=== PATIENT | female | born 1950 | race Caucasian/White ===

== ENCOUNTER 2019-03-14 22:49 | Inpatient (IN) | payer OTHER ==
[~2019-03-14] VITALS: Ht 162.6 cm; Wt 98.2 kg
[~2019-03-14 22:49] MED LIST: ASPIRIN325 PO; ATORVASTATIN CA40 MG PO; CARAFATE 1 GM TA1 G1 PO; CLOPIDOGREL75 MG PO; COREG6.25 MG PO; COZAAR 50 MG TA50 M2 PO; EFFEXOR 5050 MG/1 T1 PO; GABAPENTIN 100100 MG PO; GAS RELIEF80 MG PO; LOPERAMIDE 2 MG2 M1 PO; MIRALAX17 GM PO; MS CONTIN15 MG PO; ONDANSETRON HCL4 M2 PO; OXYCONTIN10 M1 PO; PROTONIX40 M1 PO; SEROQUEL 50 MG50 MG PO; TRAZODONE HCL50 MG PO; XANAX 0.5 MG0.5 M1 PO
[2019-03-14 22:57] VITALS: BP 125/48
[2019-03-14] MEDS ORDERED: ZETIA10 MG PO (23:10)
[2019-03-14] MEDS ORDERED: MI-ACID80 MG PO (23:11)
[2019-03-14] MEDS ORDERED: BENICAR40 MG PO (23:11)
[2019-03-14] MEDS ORDERED: NITROSTAT0.4 M1 SUBLING (23:12)
[2019-03-14] MEDS ORDERED: VOLTAREN GEL 1100 G1 TOP (23:12)
[2019-03-14] MEDS ORDERED: VENTOLIN HFA 1818 GM INH (23:12)
[2019-03-14] MEDS ORDERED: XOLEGEL45 GM TOP (23:13)
[2019-03-14] MEDS ORDERED: SALONPAS DEEP R78 GM TOP (23:14)
[2019-03-14] MEDS ORDERED: TRAZODONE HCL50 MG PO (23:14)
[2019-03-14] MEDS ORDERED: ZOLOFT 50 MG TA50 M1 PO (23:14)
[2019-03-14] MEDS ORDERED: VENLAFAXINE HC150 M1 PO (23:15)
[2019-03-14] MEDS ORDERED: PREPARATION H O28 GM RECTAL (23:16)
[2019-03-14] MEDS ORDERED: ACETAMINOPHEN500 M1 PO (23:16)
[2019-03-14] MEDS ORDERED: NYAMYC15 GM TOP (23:16)
[2019-03-14] MEDS ORDERED: LOPERAMIDE 2 MG2 M1 PO (23:16)
[2019-03-15 00:20] LABS: ABSOLUTE NEUTROPHILS 9.2 thou/uL (1.4-8.2); BASOPHILS 0.6 % (0.0-2.0); EOSINOPHILS 3.1 % (0.0-3.0); HEMATOCRIT 41.9 % (37.0-47.0); HEMOGLOBIN 13.7 gm/dL (12.0-15.0); LYMPHOCYTES 18.7 % (24.0-44.0); MCHC 32.8 g/dL (28.0-37.0); MCV 97.8 fL (80.0-100.0); MONOCYTES 7.3 % (1.0-8.0); PLATELET COUNT 317 thou/uL (150-400); POLYS 70.3 % (36.0-66.0); RBC 4.29 mil/uL (4.20-5.00); RDW 13.4 % (10.5-14.5)
[2019-03-15 00:35] LABS: ANION GAP 6 mmol/L (7-16); BUN 11 mg/dL (7-18); CALCIUM 8.8 mg/dL (8.5-10.1); CHLORIDE 101 mmol/L (98-107); CO2 29 mmol/L (21-32); CREATININE 0.8 mg/dL (0.6-1.0); GLUCOSE 130 mg/dL (74-106); POTASSIUM 4.9 mmol/L (3.5-5.1); SODIUM 136 mmol/L (136-145); TROPONIN-I <0.06 ng/mL (<0.06)
[2019-03-15 01:51] LABS: URINE BILIRUBIN NEGATIVE (Negative); URINE BLOOD NEGATIVE (Negative); URINE CLARITY CLEAR; URINE COLOR YELLOW; URINE GLUCOSE-RANDOM* NEGATIVE (Negative); URINE KETONES NEGATIVE (Negative); URINE LEUKOCYTES-REFLEX TRACE (Negative); URINE NITRITE-REFLEX NEGATIVE (Negative); URINE PROTEIN (DIPSTICK) NEGATIVE (Negative); URINE UROBILINOGEN 0.2 E.U./dl (0.2-1.0)
--- NOTE | 2019-03-15 04:06 | NUR ---
PATIENT REPOSITIONED. CLEANED OF INCONTINENT URINE. REPOSITIONED WITH PILLOW TO TAKE PRESSURE OFF RIGHT HIP. CLEAN GOWN AND WARM BLANKETS PLACED ON PATIENT. STATES SHE IS HAVING UNBELIEVABLE RIGHT HIP PAIN AND JUST DOESN'T UNDERSTAND WHY. ALSO, PUREWICK PLACED TO SUCTION.
[2019-03-15 05:17] VITALS: BP 104/57
[2019-03-15 05:30] VITALS: BP 104/57
[2019-03-15 05:51] VITALS: BP 152/65
[2019-03-15 07:00] VITALS: BP 133/72
--- NOTE | 2019-03-15 07:12 | NUR ---
PT ARRIVED FROM ER AT 0555HRS. PT IS AOX4 BUT DROWSY. ORDERS STARTED. PT REQUESTED PAIN MEDS AND PRN TYLENOL WAS GIVEN. PT WENT BACK TO SLEEP. AM RN TO COMPLETE ADMISSION.
--- NOTE | 2019-03-15 11:29 | NUR ---
Assumed pt care at 7am.Pt in bed very miserable and c/o rt hip pain.Assessment completed.vss.Dr Chong notified and order noted.Pain shot given with partial relief.Dr Chong said thenpt will be dc home today but it doesn't appear that pt is ready for dc.Case mgt notified,she said she will let dr know during the 1100 meeting.Will continue to monitor.
--- NOTE | 2019-03-15 13:13 | NUR ---
CM REVIEWED CHART AND SPOKE WITH CARE TEAM. CM MET WITH PT AT BEDSIDE THIS DAY. CM MET WITH PT AT BEDSIDE THIS DAY PT IS A&O X4. CM ROLE INTRODUCED. PT INDICATED SHE LIVES IN THE R[facility] AL FACILITY AT [facility]. 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 PT INDICATED NO DME OR HH HX. PT INDICATED SHE HOPES TO RETURN HOME ONCE MEDICALLY STABLE. PT WORKED WITH PT AND THEY INDICATED THAT PT WOULD BE SAFE TO RETURN TO HER RCF WITH HH SERVICES UPON DC. CM NOTIFIED PHYSICIAN. CM TRIED TO REACH PT'S SON BUT HE DIDN'T ANSWER. CM NOTIFIED LIAISON AT [facility] AND SHE INDICATED THAT THEY AREN'T ABLE TO PROVIDE TRANSPORT. CM TO HAVE REFERRAL SENT TO [facility]. CM TO ASK IF WE CAN ARRANGE [facility] TO TAKE PT HOME.
--- NOTE | 2019-03-15 13:49 | NUR ---
DISCHARGE PLANNING. PLAN IS FOR PATIENT TO DISCHARGE BACK TO [facility] [place] TODAY WITH HOME HEALTH SERVICES. PATIENT REFERRAL FAXED TO [facility], PER REQUEST. CALL PLACED TO LEYDI NELSON INTAKE LIAISON TO NOTIFY. AWAITING RESPONSE. FOLLOWING.
[2019-03-15 15:19] VITALS: BP 133/72
[2019-03-15 15:51] VITALS: BP 133/72
== END 2019-03-15 17:35 | disposition home health service (06) | DRG 555 ==
LOC: ER 22:49 → 4W 03-15 04:58 → EROBS 03-15 04:58 → 4W 03-15 05:31
PROVIDERS: Emergency Medicine; ADMIT Hospitalist
DX: M25.551 Pain in right hip (principal); G92 Toxic encephalopathy; K21.9 Gastro-esophageal reflux disease without esophagitis; F41.9 Anxiety disorder, unspecified; G90.9 Disorder of the autonomic nervous system, unspecified; I25.10 Atherosclerotic heart disease of native coronary artery without angina pectoris; F32.9 Major depressive disorder, single episode, unspecified; F17.200 Nicotine dependence, unspecified, uncomplicated; R73.03 Prediabetes; I10 Essential (primary) hypertension; E78.5 Hyperlipidemia, unspecified; W18.39XA Other fall on same level, initial encounter; E66.01 Morbid (severe) obesity due to excess calories; D72.829 Elevated white blood cell count, unspecified; Z90.89 Acquired absence of other organs; I25.2 Old myocardial infarction; Z90.49 Acquired absence of other specified parts of digestive tract; Z90.710 Acquired absence of both cervix and uterus; Z95.1 Presence of aortocoronary bypass graft; Y93.89 Activity, other specified; Z90.722 Acquired absence of ovaries, bilateral; Z79.82 Long term (current) use of aspirin; Z79.891 Long term (current) use of opiate analgesic; Z79.899 Other long term (current) drug therapy; Z88.5 Allergy status to narcotic agent; Z88.8 Allergy status to other drugs, medicaments and biological substances; Z91.041 Radiographic dye allergy status; Y92.89 Other specified places as the place of occurrence of the external cause; Z68.37 Body mass index [BMI] 37.0-37.9, adult; Y99.8 Other external cause status
CPT/HCPCS: 10040

== ENCOUNTER 2019-04-17 02:43 | Inpatient (IN) | payer OTHER ==
[2019-04-17] VITALS (7 sets, daily range): BP systolic 95–181; BP diastolic 33–72
[~2019-04-17] VITALS: Ht 165.1 cm; Wt 89.4 kg
[~2019-04-17 02:43] MED LIST changes: +ACETAMINOPHEN500 M1 PO; +BENICAR40 MG PO; +MI-ACID80 MG PO; +NITROSTAT0.4 M1 SUBLING; +NYAMYC15 GM TOP; +PREPARATION H O28 GM RECTAL; +SALONPAS DEEP R78 GM TOP; +VENLAFAXINE HC150 M1 PO; +VENTOLIN HFA 1818 GM INH; +VOLTAREN GEL 1100 G1 TOP; +XOLEGEL45 GM TOP; +ZETIA10 MG PO; +ZOLOFT 50 MG TA50 M1 PO
[2019-04-17 03:40] LABS: ABSOLUTE NEUTROPHILS 5.7 thou/uL (1.4-8.2); BASOPHILS 0.6 % (0.0-2.0); EOSINOPHILS 1.5 % (0.0-3.0); HEMATOCRIT 45.9 % (37.0-47.0); HEMOGLOBIN 15.3 gm/dL (12.0-15.0); LYMPHOCYTES 23.3 % (24.0-44.0); MCH 32.2 pg (26.0-34.0); MCHC 33.3 g/dL (28.0-37.0); MCV 96.7 fL (80.0-100.0); MONOCYTES 8.8 % (1.0-8.0); PLATELET COUNT 295 thou/uL (150-400); POLYS 65.8 % (36.0-66.0); RBC 4.75 mil/uL (4.20-5.00); RDW 13.4 % (10.5-14.5); WBC 8.7 thou/uL (4.0-11.0)
[2019-04-17 03:49] LABS: ANION GAP 11 mmol/L (7-16); BUN 36 mg/dL (7-18); CALCIUM 8.9 mg/dL (8.5-10.1); CHLORIDE 96 mmol/L (98-107); CO2 24 mmol/L (21-32); CREATININE 1.4 mg/dL (0.6-1.0); GLUCOSE 123 mg/dL (74-106); POTASSIUM 3.7 mmol/L (3.5-5.1); SODIUM 131 mmol/L (136-145)
[2019-04-17 03:58] LABS: LIPASE 52 U/L (73-393); MAGNESIUM 2.1 mg/dL (1.8-2.4); TROPONIN-I <0.06 ng/mL (<0.06)
[2019-04-17] MEDS ORDERED: VENTOLIN HFA INH8 GM INH (04:42)
--- NOTE | 2019-04-17 07:59 | NUR ---
PT ARRIVED ON UNIT FROM ER AT 0510. ADMITTED WITH N/V DIARRHEA AND A COUGH X3 DAYS. USING BEDPAN WITH SOME STRESS INCONTINENCE. OXY ORDERED FOR CHRONIC LEG PAIN. DENIES NAUSEA AT THIS TIME. RESTING COMFORTABLY. CALL LIGHT WITHIN REACH. FREQUENT OBSERVATION.
--- NOTE | 2019-04-17 11:22 | 2DMMODE ---
[facility] [place] [address] 2 D/M-MODE ECHOCARDIOGRAM Name: KELLY BRO Room #: 444-P ADM IN M.R.#: [id number] Admission: 04/17/19 Attend Phys: Terrance Howell MD Discharge: Date of : 46 Report #: [id number] THIS REPORT FOR: cc: Orlando Jensen MD, Shyam MD Mancuso, Gerald M. MD [facility] ~ APPROVED REPORT Study performed: 04/17/2019 10:16:11 EXAM: Comprehensive 2D, Doppler, and color-flow Echocardiogram Patient Location: Bedside Room #: 444 Status: routine BSA: 1.97 HR: 61 bpm BP: 143/69 mmHg Rhythm: NSR Other Information Study Quality: Adequate Indications COPD Dyspnea CAD Hypertension/HDD 2D Dimensions IVSd: 8.64 (7-11mm) LVOT Diam: 17.51 (18-24mm) LVDd: 41.14 mm PWd: 9.16 (7-11mm) Ascending Ao: 28.15 (22-36mm) LVDs: 29.18 (25-40mm) Aortic Root: 30.56 mm IVC: 18.00 mm Aortic Valve AoV Peak Melo.: 1.46 m/s AO Peak Gr.: 8.54 mmHg LVOT Max P.00 mmHg LVOT Max V: 1.00 m/s COURTNEY Vmax: 1.65 cm2 Mitral Valve E/A Ratio: 0.9 MV Decel. Time: 250.69 ms [facility] [address] [address] 2 D/M-MODE ECHOCARDIOGRAM Name: ADALIKELLY Room #: 444-P [facility] IN [facility]#: [id number] Admission: 04/17/19 Attend Phys: Inés Mitchell Discharge: Date of : 46 Report #: [id number] E Max Melo.: 0.96 m/s MV A Melo.: 1.02 m/s MV PHT: 72.70 ms IVRT: 143.02 ms Pulmonary Valve PV Peak Melo.: 1.11 m/s PV Peak Gr.: 4.99 mmHg Pulmonary Vein P Vein S: 0.58 m/s P Vein A: 0.22 m/s P Vein D: 0.40 m/s P Vein A Dur.: 87.7 msec P Vein S/D Ratio: 1.45 Tricuspid Valve TR Peak Melo.: 2.48 m/s TR Peak Gr.: 24.52 mmHg PA Pressure: 30.00 mmHg Left Ventricle The left ventricle is normal size. There is normal LV segmental wall motion. There is normal left ventricular wall thickness. The left ventricular systolic function is normal. The left ventricular ejection fraction is within the normal range. LVEF is 60-65%. Grade I - abnormal relaxation pattern. Right Ventricle The right ventricle is normal size. The right ventricular systolic function is normal. Atria The left atrium size is normal. The right atrium size is normal. Aortic Valve The aortic valve is normal in structure. No aortic regurgitation is present. There is no aortic valvular stenosis. Mitral Valve The mitral valve is normal in structure. There is no mitral valve regurgitation noted. No evidence of mitral valve stenosis. Tricuspid Valve The tricuspid valve is normal in structure. There is trace tricuspid regurgitation. Estimated PAP 30 mmHg. There is no pulmonary hypertension. [facility] [place] [address] 2 D/M-MODE ECHOCARDIOGRAM Name: KELLY BRO Room #: 444-P ADM IN M.R.#: [id number] Admission: 04/17/19 Attend Phys: Inés Mitchell Discharge: Date of : 46 Report #: [id number] Pulmonic Valve The pulmonary valve is normal in structure. Trace pulmonic regurgitation. Great Vessels The aortic root is normal in size. IVC is normal in size and collapses >50% with inspiration. Pericardium Small pericardial effusion. <Conclusion> The left ventricle is normal size. LVEF is 60-65%. Grade I - abnormal relaxation pattern. The right ventricle is normal size. The left atrium size is normal. The aortic valve is normal in structure. There is no mitral valve regurgitation noted. There is trace tricuspid regurgitation. Estimated PAP 30 mmHg. There is no pulmonary hypertension. The aortic root is normal in size. Small pericardial effusion. <ELECTRONICALLY SIGNED> By: Roman Diaz MD, FACC 04/17/19 112 [id number] Roman Diaz MD, FACC /INF
--- NOTE | 2019-04-17 12:01 | NUR ---
PT CARE ASSUMED 0700. A&Ox4. STOOL SAMPLE WAS TAKEN AND AWAITING RESULT FOR C-DIFF. CHIEF ACCOUNTING OFFICER, REHAB, CARDIOLOGY WAS CONSULTED. IV WAS PLACED WITH IV TEAM AND FLUIDS WERE STARTED. PT IS IN A LOT OF PAIN DUE TO HER NEUROPATHY AT BILATERAL LOWER EXTREMITY. LUNGS ARE WHEEZY AND PT IS ON 3L. PT REFUSED RT TREATMENT AND RT ASKED IF COPENEX COULD BE STARTED. DR. NORRIS HAS BEEN INFORMED. PT IS FROM [facility].
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
[2019-04-18 05:10] VITALS: BP 150/62
[2019-04-18 05:56] LABS: BASOPHILS 0.2 % (0.0-2.0); HEMATOCRIT 43.8 % (37.0-47.0); HEMOGLOBIN 14.5 gm/dL (12.0-15.0); LYMPHOCYTES 8.7 % (24.0-44.0); MCV 96.9 fL (80.0-100.0); MONOCYTES 7.1 % (1.0-8.0); PLATELET COUNT 315 thou/uL (150-400); RBC 4.52 mil/uL (4.20-5.00); RDW 13.4 % (10.5-14.5); WBC 8.3 thou/uL (4.0-11.0)
[2019-04-18 06:28] LABS: ALBUMIN 2.8 g/dL (3.4-5.0); CALCIUM 8.3 mg/dL (8.5-10.1); CREATININE 1.2 mg/dL (0.6-1.0); POTASSIUM 4.1 mmol/L (3.5-5.1); TOTAL BILIRUBIN 0.5 mg/dL (<0.1-1.0); TOTAL PROTEIN 8.1 g/dL (6.4-8.2)
[2019-04-18 07:53] VITALS: BP 155/64
--- NOTE | 2019-04-18 11:49 | NUR ---
PT CARE ASSUMED AT 0700. A&Ox4. PT HAS ANXIETY AND HAS NEEDED A DOSE OF XANAX THIS AM. PAIN IS UNCONTROLLED WITH PAIN MEDICATION. MD IS AWARE. IV IS PATENT, FLUIDS DISCONTINUED. ONE TIME DOSE OF LASIX ORDERED BY DR. NORRIS. PT HAS COMPLEETED HER BOWEL PREP AND HAS LEFT FOR THE COLONOSCOPY AT 1130. PT ON 3L. SKIN INTACT. FALL PROTOCOLL IN PLACE. SCD'S REFUSED DUE TO BILATERAL NEUROPATY. CALL LIGHT IN REACH. PT NEEDS LOTS OF EXTRA TIME WHEN IN THE ROOM.
[2019-04-18 12:36] VITALS: BP 152/76
--- NOTE | 2019-04-18 15:15 | NUR ---
PT ADMITTED RELATED TO N/V DIARRHEA COUGH. CM REVIEWED CHART AND SPOKE WITH CARE TEAM. CM MET WITH PT AT BEDSIDE THIS DAY. PT WAS IN PAIN CM KEPT ASSESSMENT BRIEF. PT INDICATED SHE LIVES AT [facility]. 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 PT INDICATED SHE PLANS TO RETURN THERE ONCE MEDCIALLY STABLE. CHART INDICATED PT HAD BEEN ON SERVICE WITH [facility] IN THE PAST. CM TO FOLLOW INDICATED WITH DC PLANNING.
--- NOTE | 2019-04-18 16:23 | NUR ---
I have reviewed and concur with student documentation.
[2019-04-18 19:30] VITALS: BP 148/50
--- NOTE | 2019-04-19 05:18 | NUR ---
ASSUMED CARE OF PT @1900 PT COMPLAINED OF UNCONTROLED PAIN IN ABD AND DOWN TO KNEES. PAIN MEDS GIVEN SEE EMAR. IV INTACT AND ABX GIVEN. EVENING MEDS AND ATIVAN GIVEN TO PT THIS SHIFT. PT RESTLESS AND VERY EMOTIONAL DUE TO PAIN. NURSE SAT AND COMMUNICATED WITH PT ABOUT PAIN, TX AND GETTING BETTER. ORDER FOR CT SCAN STILL ACTIVE. CT PERSONAL CALLED FOR PT AND PER ORDER PT STATED ALLERGIC TO IODINE, VERY RERSTLESS AND JUST WANTS HER PAIN MEDS. PER REPORT FROM DAY NURSE DR MONTERO PAGEJose DURING THE DAY FOR ORDERS. THIS NURSE NOTIFIED ONCALL ORIANA FOR TONIGHT. PT NOW SLEEPING AND RESTING WELL. WILL CONT WITH POC TILL EOS
[2019-04-19 07:34] VITALS: BP 148/43
--- NOTE | 2019-04-19 12:33 | EKG ---
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
--- NOTE | 2019-04-19 14:32 | NUR ---
CARE TEAM INDICATED THAT PT WILL LIKELY NEED POST ACUTE CARE STAY. PT HASN'T PARTICIPATED IN THERAPY EVALS OF YET. SHE IS FROM [facility]. PT GETTING COLONOSCOPY TOMORROW. CM TO FOLLOW INDICATED WITH DC PLANNING.
[2019-04-19 19:26] VITALS: BP 167/56
--- NOTE | 2019-04-20 04:14 | NUR ---
ASSESSMENT: PT REMAIN ALERT AND ORIENT TIMES THREE. PT AWAKE ALL NIGHT. NEW IV INITIATED. RIGHT FA INFILTRATED. PT REQUEST PAIN MEDICATION EVERY FOUR HOURS AND DOES NOT ATTEMPT TO SLEEP. LE PAIN PER PT. VSS, AFEBRILE. PT WITH FREQUENT URINATION, NO BM. SLOW PROGRESS TOWARDS DC GOALS, WILL CONTINUE TO MONITOR,
[2019-04-20 05:08] VITALS: BP 180/70
[2019-04-20 07:40] VITALS: BP 181/58
[2019-04-20 11:45] LABS: HEMATOCRIT 44.7 % (37.0-47.0); HEMOGLOBIN 14.9 gm/dL (12.0-15.0); MCH 32.2 pg (26.0-34.0); MCHC 33.2 g/dL (28.0-37.0); MCV 96.9 fL (80.0-100.0); RBC 4.61 mil/uL (4.20-5.00); RDW 13.4 % (10.5-14.5)
[2019-04-20 11:56] LABS: CALCIUM 8.7 mg/dL (8.5-10.1)
[2019-04-20 15:48] VITALS: BP 154/68
--- NOTE | 2019-04-20 18:30 | NUR ---
VSS-AFEBRILE. FREQUENT C/O BILATERAL LEG PAIN. SMALL AMOUT OF RELIEF WITH IV DIALUDID, AND PO TRAMADOL. APPEARED SAD TODAY, AND HAD SEVERAL EPISODES OF CRYING. PATIENT STATED SHE "JUST WANTS TO FEEL BETTER." REASSURED PATIENT THAT EACH DAY SHE SHOULD FEEL A BIT BETTER. VERY UNHAPPY ABOUT CLEAR LIQUID DIET THAT WAS ORDERED THIS SHIFT IN PREPARATION FOR COLONOSCOPY TOMORROW. MULTIPLE EPISODES OF INCONTINENCE OF BLADDER, CALLS APPROPRIATELY FOR ANY NEEDED ASSISTANCE, FALL PRECAUTIONS IN PLACE.
[2019-04-20 19:11] VITALS: BP 154/77
--- NOTE | 2019-04-21 03:00 | NUR ---
ASSUMED PT CARE AT 1900. LOST IV ACCESS, NEW IV INSERTED INTO RIGHT BREAST. ANTIBIOTICS HUNG PER ORDER. PT REFUSED TO DRINK BOWEL PREP SAYING "IT TASTE BAD" AND SHE DIDNT THINK SHE NEEDED IT. MADE AWARE. NPO SINCE MIDNIGHT. PT REPORTS PAIN 10/10, PO MEDS GIVEN. PT HAS BEEN ASLEEP ALMOST ENTIRE SHIFT. WILL CONTINUE TO MONITOR AND FOLLOW POC.
[2019-04-21 04:03] VITALS: BP 155/79
[2019-04-21 07:55] VITALS: BP 189/84
--- NOTE | 2019-04-21 09:48 | NUR ---
FAXED CLINICAL UPDATE RECEIVED CONFIRMATION AND SPOKE WITH CATIA IN ADM SHE RECEIVED UPDATE. DP TO FOLLOW.
[2019-04-21 19:25] VITALS: BP 156/66
--- NOTE | 2019-04-21 20:27 | NUR ---
1900 ASSUMED CARE OF PT AFTER BEDSIDE REPORT 1999 ASSESSMENT COMPLETED, PAIN MEDS GIVEN PER MAY FOR PAIN, PT RESTING IN BED REFUSES NYSTATIN, SCD'S AT THIS TIME, NO ANXIETY AND PT STATES LARGE BM TODAY, FALL PRECAUTIONS IN PLACE, WILL CONTINUE WITH HOURLY ROUNDING
[2019-04-22 05:00] VITALS: BP 158/88
--- NOTE | 2019-04-22 16:04 | NUR ---
VSS-AFEBRILE. OCCASIONAL HIGH BP READINGS, WILL CONTINUE TO MONITOR PARAMETERS. CONSTANT REPORTS OF UNRELIEVED NEUROPATHY PAIN WITH BILATERAL LOWER EXTREMITIES. PHYSICIAN IS AWARE, AND MADE PAIN MEDICATION AVAILABILITY EVERY 6 HOURS, VERSUS EVERY 8 HOURS. PATIENT CONTINUES TO STATE THAT SHE RECIEVES "NO RELIEF". COMPLETE BATH AND LINEN CHANGE THIS SHIFT. REMAINS ON 2LNC WITH WHEEZES/COURSE LUNG SOUNDS. POOR APPETITE. FALL PRECAUTIONS IN PLACE, CALLS APPROPRIATELY FOR ANY NEEDED ASSISTANCE.
--- NOTE | 2019-04-22 18:04 | NUR ---
Pt blood sugar 444. Provider aware. New orders noted.
--- NOTE | 2019-04-22 18:22 | NUR ---
DISCHARGE ORDERS GIVEN TO PATIENT, WELL MEDICATIONS THAT WERE PROVIDED BY HOSPITAL. ALL QUESTIONS ANSWERED, PATIENT VERBALIZED UNDERSTANDING OF ALL DISCUSSED INFORMATION. ALL DC PAPERS SIGNED, LEFT UNIT IN WHEELCHAIR WITH ALL PERSONAL BELONGINGS. PATIENT WAS PICKED UP IN PRIVATE VEHICLE BY HER BROTHER.
--- NOTE | 2019-04-22 19:05 | NUR ---
VSS-AFEBRILE. WHEEZY/DIMINISHED IN ALL MUIR BILATERALLY. REMAINS ON 2LNC. CONTINUES TO C/O BILATERAL LE NEUROPATHY PAIN DESPITE PO DILAUDID AND TRAMADOL. COMPLETE BATH AND LINEN CHANGE. POOR APPETITE. FALL PRECATIONS IN PLACE, CALLS APPROPRIATELY FOR ANY NEEDED ASSISTANCE.
[2019-04-22 19:08] VITALS: BP 184/81
[2019-04-22 20:10] VITALS: BP 172/79
[2019-04-23 04:10] VITALS: BP 186/98
--- NOTE | 2019-04-23 05:22 | NUR ---
PT LYING IN BED. DILAUDID PROVIDING PAIN RELIEF. REMAINS INCONTINENT. RESTING COMFORTABLY. NO NEEDS VOICED. CALL LIGHT WITHIN REACH. WILL CONTINUE TO PROVIDE FREQUENT OBSERVATION.
[2019-04-23 08:25] VITALS: BP 143/80
[2019-04-23 15:01] VITALS: BP 151/62
[2019-04-23 17:02] VITALS: BP 154/74
--- NOTE | 2019-04-23 19:30 | NUR ---
PT CARE ASSUMED AT 0700. A&Ox4. PT CONTINUES TO COMPLAIN OF RADIATING PAIN FROM THE HIP DOWN THE LEGS. PT REFUSED DICLOFENAC, HYDROCORTISONE CREAM, AND NYSTATIN POWDER ALL DAY. PT DID GET UP TO THE BEDSIDE COMMODE WHEN HAVING TO USE THE RESTROOM TODAY. PT COMPLAINED OF CHESTPAIN, A RAPID WAS CALLED, WITH NSR AND A NEGATIVE TROPONIN. BS WERE IN THE RANGE FROM [phone] TODAY. MD NORRIS WAS NOTIFIED AND SHE WANTS ENDOCRINOLOGY CONSULTED AND HAS ADDED LANTUS 30 UNITS. IV IS PATENT WITH NO REDNESS OR SWELLING. IV FLUSHES WELL. PER MD WE ARE TO AVOID IV PAIN MEDICATIONS AND TRY PO FIRST ALWAYS DUE TO DRUG SEEKING BEHAVIORS. PT IS ON 2L WHICH WHEN YOU WALK INTO THE ROOM SHE DOES NOT HAVE ON MOST OF THE TIME. FLORENCIO HAS BEEN NOTIFIED OF TODAY CHEST PAIN INCIDENT. FALL PROTOCOLL IN PLACE. CALL LIGHT IN REACH.
[2019-04-23 23:45] VITALS: BP 189/89
[2019-04-24 04:45] VITALS: BP 144/61
--- NOTE | 2019-04-24 06:11 | NUR ---
PT LYING IN BED. REMAINS INCONTINENT. DILAUDID PROVIDING PARTIAL PAIN RELIEF. RESTING COMFORTABLY OFF AND ON. NO NEEDS VOICED. CALL LIGHT WITHIN REACH. FREQUENT OBSERVATION.
--- NOTE | 2019-04-24 08:01 | EKG ---
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 : 1950 Requested By: Terrance Howell Order Number: [id number] MD: Matthew Suárez Measurements Intervals [place] Rate: 75 P: 59 TN: 165 QRS: 31 QRSD: 88 T: 86 QT: 390 QTc: 436 Interpretive Statements Sinus rhythm Left atrial enlargement Probable LVH with secondary repol abnrm Compared to ECG 04/17/2019 03:10:56 No significant change was found Electronically Signed On 04-24-2019 8:00:51 CRIMINAL RECORDS TECHNICIAN by Matthew Suárez [email or web address] <ELECTRONICALLY SIGNED> By: Matthew Suárez MD, FAC 04/24/19 0800 1503 1503 Matthew Suárez MD, FAC /EPI
[2019-04-24 09:00] VITALS: BP 154/76
[2019-04-24 09:37] LABS: CALCIUM 8.7 mg/dL (8.5-10.1); CREATININE 0.8 mg/dL (0.6-1.0); POTASSIUM 4.8 mmol/L (3.5-5.1)
[2019-04-24 17:45] VITALS: BP 180/85
--- NOTE | 2019-04-24 18:54 | NUR ---
PT ASSESSED AT START OF SHIFT. NPO THIS AM FOR NUC MED STRESS TEST- WILL FINISH W/ PICTURES TOMORROW. C/O HER LEG NEUROPATHY PAIN THIS AFTERNOON. EATING AND DRINKING FINE. BLOOD SUGARS UP AT DINNER PT ATE ICECREAM.
[2019-04-24 21:00] VITALS: BP 150/73
--- NOTE | 2019-04-25 03:52 | NUR ---
04/24/19 1900 ASSUMED CARE OF PT AFTER BEDSIDE REPORT, PT AWAKE AND PLEASANT ASKING FOR SNACKS, 2100 PT NEEDS INCREASE IN SSI PER PROTOCOL, ORDERS CHANGED. 2300 INSULIN GIVEN PER NEW SS AFTER CBG RECHECKED AND ORDERS OK'D BY PHARMACY. PT COMPLAINING OF PAIN, PAIN MEDS GIVEN PER MAY, PT WILL COMPLAIN OF PAIN RATED 10/10, BUT THEN FALL ASLEEP AFTER NURSE LEAVES ROOM FOR MEDICATION. PT STATES BM TODAY. LUNGS SOUND BETTER THAN PREVIOUS SHIFTS AND ARE LESS DIMINISHED AND CLEAR BETTER WITH COUGH. PT REFUSING HYDROCORTISONE CREAM AND NYSTATIN STATES NO ITCHING. PT REFUSES SCDS. WILL CONTINUE WITH HOURLY ROUNDING
[2019-04-25 04:18] VITALS: BP 155/77
[2019-04-25 06:32] LABS: HEMATOCRIT 44.7 % (37.0-47.0); HEMOGLOBIN 14.5 gm/dL (12.0-15.0); MCH 31.4 pg (26.0-34.0); MCHC 32.4 g/dL (28.0-37.0); MCV 96.9 fL (80.0-100.0); RBC 4.62 mil/uL (4.20-5.00); WBC 11.9 thou/uL (4.0-11.0)
[2019-04-25 06:42] LABS: CALCIUM 8.8 mg/dL (8.5-10.1); CREATININE 0.9 mg/dL (0.6-1.0); POTASSIUM 4.9 mmol/L (3.5-5.1)
[2019-04-25 07:48] VITALS: BP 198/86
--- NOTE | 2019-04-25 12:55 | NUR ---
PT CARE ASSUMED AT 0700. A&Ox4. PT CONTINUES TO COMPLAIN ABOUT UNRESOLVED PAIN IN HER BILATERAL LOWER EXTREMITY BUT REFUSES THE DICLOFENAC. SHE ALSO REFUSES NYSTATIN AND HER HEMORRHOID CREAM. PT WENT TO THE SECOND PART OF HER STRESS TEST. NPO DC'D AND BACK ON HER LOW FIBER DIET. PT HAD A LOOSE BM THIS AM. ACHS WITH COVERAGE NEEDED. IV PATENT WITH NO REDNESS OR EDEMA. SALINE LOCKED. FALL PROTOCOLL IN PLACE. WILL CONTINUE TO MONITOR. MORNING MEDS GIVEN WHEN PT RETURNED FROM STRESS TEST. SIMETICON HELD AT 0900 DUE TO NPO STATUS.
--- NOTE | 2019-04-25 16:29 | NUR ---
CM NOTIFIED THAT PT WAS TRANSFERED TO SENIOR SUITES ROOM 411. PT HAD BEEN GETTING STRESS TEST TODAY. CARE TEAM HAD INDICATED THAT IF STRESS TEST WAS NEGATIVE PT COULD DISCHARGE SKILLED TO [facility]. CM NOTIFIED [facility] OF PT'S POSSIBLE RETURN. NO ORDERS OF THIS NOTE. SHOULD PT BE DETERMIEND TO BE MEDICALLY STABLE TO DC NOTIFY PERFECTO AT CALL FACILITY AT FAX ORDERS TO . [facility] CAN BE ARR[facility]ED IF NEEDED . CM TO FOLLOW INDICATED SHOULD PT NOT BE MEDICALLY STABLE TO DC TODAY.
--- NOTE | 2019-04-25 17:28 | NUR ---
PT ARRIVED ON UNIT FROM 4S, RECEIVED REPORT FROM NURSE. PT IS AOX4, VSS, PAIN CONTROLLED IN BLE WITH PAIN ANALGESIC. PT TOLERATES DIET WITHOUT N/V. PT HAD A PANIC ATTACK AFTER ARRIVING IN HER ROOM. NURSE GAVE PT PRN MEDICATION. PT REPORTS FEELING CALM NOW, UNSURE WHAT CAUSED THE PANIC ATTACK. FALL PRECAUTIONS IN PLACE. PT CALLS APPROPRIATELY, IV SL ON RIGHT BREAST. CALL LIGHT/PERSONAL ITEMS IN REACH. WILL CONTINUE TO MONITOR.
[2019-04-25 20:09] VITALS: BP 150/82
[2019-04-25 20:13] VITALS: BP 133/82
[2019-04-25 20:17] VITALS: BP 150/82
[2019-04-26 03:10] LABS: GLYCOHEMOGLOBIN (HGB A1C) 7.8 % (4.8-5.6)
--- NOTE | 2019-04-26 05:05 | NUR ---
Assumed pt care at 1900. Pt A/OX4, VSS. C/o constant pain to BLE and requesting for meds when they're not due yet, medicated per EMAR on reassessment pt verbalizes some relief and drowsy. Also medicated with Xanax for anxiety with positive results. Pt is incontinent of B&B,stating she has no control since admission,pericare and noisture barrier applied after each episode of incontinence. Up with moderate assist to BSC. PIV on right chest and patent. Fall precautions in place, calls approp.
--- NOTE | 2019-04-26 07:05 | NUR ---
PATIENT REFUSED TREATMENT BECAUSE OF THE SMELL ADVISE PATIENT ABOUT PRN DUONEB WITHOUT SMELL. PATIENT STILL REFUSED TREATMENT
[2019-04-26 08:59] VITALS: BP 154/89
[2019-04-26 09:07] VITALS: BP 154/89
--- NOTE | 2019-04-26 09:07 | HC ---
[facility] [place] [address] CONSULTATION Name: KELLY BRO Room #: 411-P ADM IN M.R.#: [id number] Admission: 04/17/19 Attend Phys: Terrance Howell MD Discharge: Date of : 46 Report #: [id number] THIS REPORT FOR: cc: Orlando Jensen MD,Delbert Weems MD, MD ~ CC: Terrance Ignacioeric Diaz Orlando Jensen DATE OF SERVICE: 04/25/2019 ENDOCRINE CONSULTATION NOTE CONSULTING PHYSICIAN: Torrey Heart M.D. PRIMARY CARE PHYSICIAN: Orlando Jensen M.D. REASON FOR CONSULTATION: Severe hyperglycemia, type 2 diabetes mellitus. HISTORY OF PRESENT ILLNESS: This is a 68-year-old female patient whose medical background is significant for hypertension, hyperlipidemia, coronary artery disease, Crohn's disease, chronic pain and peripheral neuropathy who presented here on 04/17/2019 with complaints of worsening shortness of breath, cough and generalized weakness. She was simultaneously dealing with what she describes as an exacerbation of her Crohn's disease. Subsequently, the patient was admitted with a provisional diagnosis of acute respiratory failure and possible COPD exacerbation for further care and monitoring. The patient was appropriately managed with a number of measures including intravenous steroid therapy. Later during her hospital stay, the patient was noted to have progressively higher blood glucose values getting into the severe hyperglycemia range. When I interviewed the patient earlier today, she denied any prior knowledge of type 2 diabetes mellitus and indicated that she had not been at any point in time on antidiabetic therapy. She has not noted particular issues with polyuria, polydipsia, or polyphagia over the past few months. She has not had dramatic body weight changes over the same period as well. The patient is known to have hypertension and is on treatment with olmesartan. She is also known to have hyperlipidemia and is on treatment with atorvastatin 40 mg daily and ezetimibe 10 mg daily. REVIEW OF SYSTEMS: CONSTITUTIONAL: Fatigue, tiredness, weakness, chills. No major weight changes. HEENT: Negative for sinus pain, congestion, ear drainage. PULMONARY: Progressive shortness of breath, cough, but not hemoptysis. [address] [address] CONSULTATION Name: KELLY BRO Room #: [facility] IN M.R.#: [id number] Admission: 04/17/19 Attend Phys: Terrance Howell MD Discharge: Date of : 46 Report #: [id number] CARDIAC: Palpitations, chest discomfort, dyspnea on exertion, lower extremity edema. No syncope. NEUROLOGY: Negative for seizure activity, loss of consciousness, severe frequent headaches. GASTROINTESTINAL: Abdominal discomfort, abdominal distention, nausea, but no vomiting. PSYCHIATRIC: Negative for delusions, hallucinations, but the patient has significant baseline anxiety and depression issues. UROLOGY: Negative for dysuria, hematuria. Otherwise, review of systems is noncontributory other than those mentioned in HPI. PAST MEDICAL HISTORY: 1. Hypertension. 2. Hyperlipidemia. 3. Coronary artery disease, status post [place] in 1996. 4. GERD. 5. Peripheral neuropathy. 6. Crohn's disease. 7. Depression. 8. Anxiety. PAST SURGICAL HISTORY: Noted for carpal tunnel surgery, cholecystectomy, laparotomy, partial bowel resection, bladder suspension, hysterectomy, salpingo-oophorectomy. OUTPATIENT MEDICATIONS: Include gabapentin 1200 mg t.i.d., MiraLax 17 grams daily, Imodium 2 mg daily, Zofran p.r.n., atorvastatin 40 mg at bedtime, carvedilol 6.25 mg b.i.d., sucralfate 1 gram b.i.d., Effexor 150 mg daily, Protonix 40 mg daily, alprazolam 0.5 mg p.r.n. anxiety, Zetia 10 mg daily, Benicar 40 mg daily, Nitrostat 0.4 mg sublingual as needed for angina and albuterol 1 puff q.4 hours p.r.n. shortness of breath. ALLERGIES: She is allergic to CODEINE, FENTANYL, IODINE, METHOTREXATE, METOCLOPRAMIDE, PROMETHAZINE and SULFA. FAMILY HISTORY: Noncontributory. SOCIAL HISTORY: The patient is a former smoker. Denies use of alcohol. PHYSICAL EXAMINATION: GENERAL: This is an elderly female patient who is not in apparent distress. VITAL SIGNS: Blood pressure is 150/78, heart rate is 63 beats per minute, respiration 18 per minute, temperature is 36.7 degrees. CONSTITUTIONAL: She is lying in bed, appears a bit uncomfortable, but not in pain or distress. [facility] [address] [place] [address] CONSULTATION Name: KELLY BRO Room #: 411-P [facility] IN M.R.#: [id number] Admission: 04/17/19 Attend Phys: Terrance Howell MD Discharge: Date of : 46 Report #: [id number] HEENT: Anicteric sclerae. Intact extraocular motions. NECK: Supple, without JVD, carotid bruits or lymphadenopathy. I do not appreciate thyromegaly. CHEST: Noted for limited air entry bilaterally with scattered rales and rhonchi. HEART: Regular rate and rhythm without murmurs or gallops. ABDOMEN: Distended, but soft, lax, nontender, no guarding. Active bowel sounds. EXTREMITIES: Lower extremity exam noted for trace ankle edema bilaterally. No skin breaks, no ulcerations and with markedly diminished sensation to light touch over both lower extremities. NEUROLOGIC: Awake, alert and oriented to time, place and person. The remainder of her examination is nonfocal other than for significant peripheral sensory deficits over both lower extremities. PSYCHOLOGIC: Flat mood and affect, but appropriate, pleasant, interactive and answered my questions to the full extent. LABORATORY DATA: Having reviewed her blood glucose values since her admission, it appears that the patient arrived with a blood glucose of 306 mg/dL. She has often been over 400 mg/dL, but for the most part between 200 and 350 mg/dL. Sodium 131 earlier today, but it was at 139 at some point during this admission. Potassium 4.9, chloride 96, CO2 is 30, anion gap 5, BUN 28, creatinine 0.9. Lipase 52, AST 37, total bilirubin 0.5, calcium 8.8, magnesium 2.1, alkaline phosphatase 158, ALT 45, total protein 8.1, albumin 2.8, EGFR 62. Troponin negative. BNP 400. White blood count 11.9, hemoglobin 14.5, hematocrit 44.7, platelets 402. Hemoglobin A1c in 12/2016 was at 6.4%. ASSESSMENT AND PLAN: 1. Type 2 diabetes mellitus. As noted above, the patient does not carry a formal diagnosis of type 2 diabetes mellitus and as such is not on active antidiabetic therapy in the outpatient setting. However, it is of note that her hemoglobin A1c was virtually in diabetic range more than 2 years ago. More importantly, she was significantly hyperglycemic and in diabetic range at presentation and prior to the utilization of steroid therapy. In short, I believe that she is simply a missed case of type 2 diabetes mellitus that has not been diagnosed yet as opposed to this being new onset diabetes. The patient was counseled about the fact that she certainly meets the definition of diabetes mellitus. In all fairness, I do believe that the need for intravenous insulin therapy has certainly exacerbated the issue. The patient was appropriately started on long-acting insulin coverage 2 days ago in the form of Lantus insulin 30 units at bedtime as well as having a Humalog supplemental scale of moderate intensity. Judging by the patient's current blood glucose profile, I would like to advance this further to 25 units of Lantus twice a day, introduced Humalog 14 units before meals, and introduce metformin therapy at 500 mg twice a day. I will also obtain a hemoglobin A1c to get a better feel for her most recent glycemic outlook. Blood glucose monitoring will continue a.[place] [address] CONSULTATION Name: KELLY BRO Room #: 411-P [facility] IN M.R.#: [id number] Admission: 04/17/19 Attend Phys: Terrance Howell MD Discharge: Date of : 46 Report #: [id number] and further therapeutic adjustments will be made accordingly. 2. Hypertension. The patient's level of blood pressure control has been marginal with ongoing intercurrent illness and utilization of IV steroids. She is currently on carvedilol, amlodipine and olmesartan. I will defer further therapeutic changes in this regard to the primary hospital team. 3. Hyperlipidemia. The patient is currently on atorvastatin therapy and tolerates it well, she is to continue with the same. 4. Acute respiratory failure probably in the setting of bronchitis and pneumonia as well as chronic obstructive pulmonary disease. She is currently on a combination bronchodilators, IV steroids. I have reviewed the patient's clinical care notes, laboratory data, radiologic studies past and present for over 35 minutes. I certainly appreciate this consultation by Dr. Heart. <ELECTRONICALLY SIGNED> By: Delbert Hi MD 04/26/19 0907 [id number] Delbert Hi MD /nt
[2019-04-26 10:23] LABS: CALCIUM 8.9 mg/dL (8.5-10.1); CREATININE 0.8 mg/dL (0.6-1.0); POTASSIUM 5.3 mmol/L (3.5-5.1)
[2019-04-26] MEDS ORDERED: SPIRONOLACTONE25 M1 PO (13:48)
[2019-04-26] MEDS ORDERED: NORVASC5 MG PO (13:48)
[2019-04-26] MEDS ORDERED: TRAMADOL 50 MG50 MG PO (13:49)
[2019-04-26] MEDS ORDERED: METFORMIN HCL500 MG PO (13:49)
[2019-04-26] MEDS ORDERED: LANTUS SUBQ (13:50)
[2019-04-26] MEDS ORDERED: HUMALOG100 UNIT/1 SUBQ (13:50)
--- NOTE | 2019-04-26 13:51 | NUR ---
DISCHARGE NOTE: SW reviewed chart and spoke with nursing and attending physician. Pt was transferred to [facility] from and is medically stable for discharge to [facility] SNF today. Awaiting final discharge orders at this time. SW met with pt at bedside to provide update and discuss discharge. Pt is agreeable with discharge plan. Pt is aware that she is going to the SNF unit at the facility. Pt will transition back to her RCF apt after rehab. interstate planner to fax d/c orders/summary when available. Awaiting transportation time at this time. No additional SW needs identified at this time, but is available to assist should needs arise.
[2019-04-26] MEDS ORDERED: FLAGYL500 M1 PO (13:52)
[2019-04-26] MEDS ORDERED: LEVAQUIN 750 M750 MG PO (13:52)
[2019-04-26] MEDS ORDERED: TRADJENTA5 MG PO (13:52)
[2019-04-26] MEDS ORDERED: PREDNISONE 10 M10 M1 PO (13:53)
--- NOTE | 2019-04-26 15:21 | NUR ---
DISCHARGE ORDERS COMPLETED. PATIENT DISCHARGING TO [facility]ILL[facility]. DISCHARGE ORDERS/SUMMARY FAXED TO [facility]. VERIFIED ORDERS RECEIVED. TRANSPORTATION ARRANGED PER [facility] HOURS. CHART COPY COMPLETED PER ASSISTANT PLANT CONTROL OPERATOR. UNIT RN NOTIFIED, CONTACT NUMBER FOR REPORT PROVIDED.
== END 2019-04-26 17:03 | DRG 385 ==
LOC: ER 02:43 → EROBS 04:14 → 4S 04:14 → 4N 04-25 13:53
PROVIDERS: Emergency Medicine; Hospitalist; Internal Medicine; Nurse Practitioner; Nurse Practitioner Adult Health; ADMIT Hospitalist
DX: K50.90 Crohn's disease, unspecified, without complications (principal); J96.01 Acute respiratory failure with hypoxia; J44.1 Chronic obstructive pulmonary disease with (acute) exacerbation; N17.9 Acute kidney failure, unspecified; E78.5 Hyperlipidemia, unspecified; G62.9 Polyneuropathy, unspecified; K21.9 Gastro-esophageal reflux disease without esophagitis; F41.9 Anxiety disorder, unspecified; F32.9 Major depressive disorder, single episode, unspecified; E11.65 Type 2 diabetes mellitus with hyperglycemia; G89.29 Other chronic pain; J40 Bronchitis, not specified as acute or chronic; I12.9 Hypertensive chronic kidney disease with stage 1 through stage 4 chronic kidney disease, or unspecified chronic kidney disease; F11.90 Opioid use, unspecified, uncomplicated; N18.9 Chronic kidney disease, unspecified; I25.10 Atherosclerotic heart disease of native coronary artery without angina pectoris; E66.01 Morbid (severe) obesity due to excess calories; R19.7 Diarrhea, unspecified; K76.0 Fatty (change of) liver, not elsewhere classified; I65.29 Occlusion and stenosis of unspecified carotid artery; G25.81 Restless legs syndrome; E78.00 Pure hypercholesterolemia, unspecified; M25.551 Pain in right hip; Z95.1 Presence of aortocoronary bypass graft; Z79.82 Long term (current) use of aspirin; I25.2 Old myocardial infarction; Z90.89 Acquired absence of other organs; Z90.49 Acquired absence of other specified parts of digestive tract; Z90.710 Acquired absence of both cervix and uterus; Z90.722 Acquired absence of ovaries, bilateral; Z88.5 Allergy status to narcotic agent; Z79.899 Other long term (current) drug therapy; Z88.8 Allergy status to other drugs, medicaments and biological substances; Z87.891 Personal history of nicotine dependence; Z68.32 Body mass index [BMI] 32.0-32.9, adult
CPT/HCPCS: 10091; 10195

== ENCOUNTER 2019-10-11 19:37 | Inpatient (IN) | payer OTHER ==
[~2019-10-11] VITALS: Ht 162.6 cm; Wt 95.3 kg
[~2019-10-11 19:37] MED LIST changes: -EFFEXOR 5050 MG/1 T1 PO; +FLAGYL500 M1 PO; +HUMALOG100 UNIT/1 SUBQ; +LANTUS SUBQ; +LEVAQUIN 750 M750 MG PO; +METFORMIN HCL500 MG PO; +NORVASC5 MG PO; +PREDNISONE 10 M10 M1 PO; +SPIRONOLACTONE25 M1 PO; +TRADJENTA5 MG PO; +TRAMADOL 50 MG50 MG PO; +VENTOLIN HFA INH8 GM INH
[2019-10-11 19:38] VITALS: BP 170/88
--- NOTE | 2019-10-11 20:28 | NUR ---
[facility] ATTEMPT UNSUCESSFUL. SENDING ANOTHER TECH.
[2019-10-11 20:44] LABS: HEMOGLOBIN 15.6 gm/dL (12.0-15.0); MCH 33.1 pg (26.0-34.0); MCHC 33.8 g/dL (28.0-37.0); MCV 97.8 fL (80.0-100.0); PLATELET COUNT 418 thou/uL (150-400); RDW 12.7 % (10.5-14.5); WBC 21.1 thou/uL (4.0-11.0)
[2019-10-11 20:51] LABS: CALCIUM 8.7 mg/dL (8.5-10.1); CREATININE 0.7 mg/dL (0.6-1.0); POTASSIUM 5.4 mmol/L (3.5-5.1)
[2019-10-11 20:58] LABS: ALBUMIN 3.8 g/dL (3.4-5.0); TOTAL BILIRUBIN 0.8 mg/dL (0.2-1.0)
[2019-10-11 21:40] LABS: ABSOLUTE NEUTROPHILS 17.7 thou/uL (1.4-8.2); ANISOCYTOSIS 1+
[2019-10-12 00:28] LABS: URINE BILIRUBIN 1+ (Negative); URINE BLOOD NEGATIVE (Negative); URINE CLARITY CLEAR; URINE COLOR YELLOW; URINE GLUCOSE-RANDOM* NEGATIVE (Negative); URINE KETONES NEGATIVE (Negative); URINE LEUKOCYTES-REFLEX NEGATIVE (Negative); URINE NITRITE-REFLEX NEGATIVE (Negative); URINE PROTEIN (DIPSTICK) 1+ (Negative); URINE SPECIFIC GRAVITY >= 1.030 (1.005-1.035)
[2019-10-12 01:02] LABS: BACTERIA-REFLEX 1-9 Few /HPF (None Seen); CRYSTALS None Seen /LPF (None Seen); HYALINE CASTS 4-10 Moderate /LPF (None Seen); MUCUS 4-6 Moderate strn/LPF (None Seen); SQUAMOUS 4-10 Moderate /LPF (0-3); URINE RBC 0-2 Rare /HPF (0-2); URINE WBC-REFLEX 0-5 Rare /HPF (0-5)
[2019-10-12 02:23] VITALS: BP 124/70
[2019-10-12 02:36] VITALS: BP 129/61
[2019-10-12 03:14] VITALS: BP 129/64
--- NOTE | 2019-10-12 07:17 | NUR ---
Admission history and assessments completed. Careplan initiated. IVfluids and IV antibiotics started.
--- NOTE | 2019-10-12 07:35 | EKG ---
[facility] [place] [address] ELECTROCARDIOGRAM REPORT Name: CARO BRO Room #: 354-P ADM IN M.R.#: [id number] Admission: 10/12/19 Attend Phys: Torrey Heart MD Discharge: Date of : 46 Report #: [id number] THIS REPORT FOR: cc: Orlando Jensen MD, Shyam MD Lundgren,Matthew Patterson MD MERGED WITH [facility] ~ THIS REPORT FOR: //name// [facility] ED Test Date: 2019-10-11 Test Time: 19:54:21 Pat Name: CARO BRO Department: Room: 354 Gender: F Lactation Consultant: KENTON : 1950 Requested By: Daniel Zamora Order Number: [id number] MD: Matthew Suárez Measurements Intervals [place] Rate: 89 P: 30 SC: 171 QRS: 25 QRSD: 85 T: 86 QT: 366 QTc: 446 Interpretive Statements Sinus rhythm Minimal ST depression, lateral leads Baseline wander in lead(s) II,III,aVF,V5 Compared to ECG 04/23/2019 15:03:28 No significant change was found Electronically Signed On 10-12-2019 7:35:34 CDT by Matthew Suárez [email or web address] <ELECTRONICALLY SIGNED> By: Matthew Suárez MD, MERGED WITH [facility] 10/12/19 0735 [id number] Matthew Suárez MD, MERGED WITH [facility] /EPI
[2019-10-12 08:00] VITALS: BP 139/58
--- NOTE | 2019-10-12 08:51 | NUR ---
SPOKE TO FAMILY MEMBER, MAG HILTON. HE IS REQUESTING TO SPEAK TO A PLODDER OPERATOR. [phone].
[2019-10-12] MEDS ORDERED: PERCOCET 5-3251 EACH PO (09:50)
[2019-10-12] MEDS ORDERED: OXYCONTIN10 M1 PO (10:04)
--- NOTE | 2019-10-12 11:55 | NUR ---
INITIAL ASSESSMENT: Received consult. ELAYNE reviewed chart and spoke with nursing and attending physician. Pt was admitted due to intractable abdominal pain. Pt placed in Enhanced Isolation to r/o COVID-19. Test is currently pending. Pt is afebrile and not on O2. Pt is on IV abx. GI consulted. ELAYNE spoke with pt via phone. Introduced role of SW. Pt appears to be alert/orientated x 4. Pt reports she was living in the RCF at [facility], until the facility closed. Pt now lives in an [place] apt at [facility]. Pt reports that she has been using a walker. Pt states she has [place]-Medicaid [place] secondary insurance to her Medicare-Part A only. SW notified UR RN. Per chart, pt had [place]-Medicaid during last hospitalization. Pt would benefit from therapy evals when able to participate to assist with recommendations for discharge needs. ELAYNE spoke with staff at [facility], who state that pt would be able to go to their SNF if needed at time of discharge. ELAYNE is following to assist as needed with discharge planning.
[2019-10-12 14:36] LABS: ABSOLUTE NEUTROPHILS 9.7 thou/uL (1.4-8.2); BASOPHILS 0.6 % (0.0-2.0); EOSINOPHILS 1.9 % (0.0-3.0); HEMATOCRIT 36.6 % (37.0-47.0); LYMPHOCYTES 18.3 % (24.0-44.0); MCH 33.3 pg (26.0-34.0); MCHC 33.9 g/dL (28.0-37.0); MCV 98.2 fL (80.0-100.0); POLYS 69.2 % (36.0-66.0); RBC 3.73 mil/uL (4.20-5.00); RDW 12.7 % (10.5-14.5)
[2019-10-12 14:43] LABS: HEMOGLOBIN 12.4 gm/dL (12.0-15.0)
--- NOTE | 2019-10-12 14:43 | NUR ---
CONSULTED TO DRAW LABS. THE PATIENTS IV ACCESS IS IN HER BREAST. DISCUSSED MIDLINE PLACEMENT AND SHE AGREED. THE RIGHT UPPER ARM BASILIC WAS WIDLEY PATENT. A #4F POWER MIDLINE WAS PLACED. LINE WAS TRIMMED TO 15CM AND ADVANCED WITHOUT DIFFICULTY. LINE SECURED AND RELEASED FOR USE
[2019-10-12 14:44] LABS: PLATELET COUNT 336 thou/uL (150-400)
[2019-10-12 15:02] LABS: ALBUMIN 3.1 g/dL (3.4-5.0); CALCIUM 7.8 mg/dL (8.5-10.1); MAGNESIUM 1.8 mg/dL (1.8-2.4); POTASSIUM 4.7 mmol/L (3.5-5.1); TOTAL BILIRUBIN 0.8 mg/dL (0.2-1.0)
[2019-10-12 16:00] VITALS: BP 107/57
--- NOTE | 2019-10-12 18:19 | NUR ---
PT CARE ASSUMED AT 0700, PT ALERT AND ORIENTED X4, DENIES CHEST PAIN. COMPLAINS OF NAUSEA, ZOFRAN GIVEN PRN. PT IS ON ROOM AIR , NO DISTRESS NOTED. PT COMPLAINS OF SEVERE ABODMINAL PAIN, PAIN MED GIVEN PER ORDER. PT REFUSED OXYCOTIN THIS AM, STATED SHE WILL PREFER THE IV DILAUDID, DR. ALVA AWARE, PT EDUCATED, CONTINUED TO REFUSE. FALL PRECAUTIONS IN PLACE.CALL LIGHT AND TABLE WITHIN REACH. BED AT LOWEST LEVEL. WILL CONTINUE TO MONITOR.
[2019-10-12 20:12] VITALS: BP 135/61
--- NOTE | 2019-10-13 03:39 | NUR ---
Patient making progress towards outcome goals. Prefers Dilaudid for pain control, with some relief. Zofran given for nausea. Taking clear liquids, wants food but still c/o nausea. Gait steady up to bsc with standby assist. Low fall risks. Patient calls out appropriately for needs. Xanax helps relieve anxiety.
[2019-10-13 04:06] LABS: GLYCOHEMOGLOBIN (HGB A1C) 6.6 % (4.8-5.6)
[2019-10-13 07:27] LABS: ABSOLUTE NEUTROPHILS 6.1 thou/uL (1.4-8.2); BASOPHILS 0.5 % (0.0-2.0); EOSINOPHILS 4.4 % (0.0-3.0); HEMATOCRIT 35.4 % (37.0-47.0); HEMOGLOBIN 11.6 gm/dL (12.0-15.0); LYMPHOCYTES 21.4 % (24.0-44.0); MCH 32.8 pg (26.0-34.0); MCHC 32.8 g/dL (28.0-37.0); MCV 99.9 fL (80.0-100.0); MONOCYTES 8.9 % (1.0-8.0); PLATELET COUNT 320 thou/uL (150-400); POLYS 64.8 % (36.0-66.0); RBC 3.54 mil/uL (4.20-5.00); RDW 12.7 % (10.5-14.5); WBC 9.5 thou/uL (4.0-11.0)
[2019-10-13 07:45] LABS: CALCIUM 7.9 mg/dL (8.5-10.1); CREATININE 1.2 mg/dL (0.6-1.0); POTASSIUM 4.1 mmol/L (3.5-5.1)
[2019-10-13 08:37] VITALS: BP 139/64
--- NOTE | 2019-10-13 11:41 | NUR ---
ELAYNE reviewed chart and spoke with nursing and attending physician. Pt remains in Enhanced Isolation to r/o COVID-19. First test is negative. Awaiting second test. Pt will have EGD/colonoscopy pending results. Pt is afebrile and not requiring O2. Pt is on IV abx. ELAYNE placed call to pt's room to follow up and discuss discharge plans. Pt did not answer the phone. PT/OT evals on hold until COVID results are available. Pt is from the indpendent living at [facility]. SW is following to assist as needed with discharge planning.
--- NOTE | 2019-10-13 13:02 | NUR ---
PT TAKEN DOPWN FOR EGD.
--- NOTE | 2019-10-13 13:04 | NUR ---
PT CARE ASSUMED AT 0700, PT ALERT AND ORIENTED X4, PT DENIES CHEST PAIN, NO VOMITING. PT COMPLAINS OF NAUSEA. ZOFRAN GIVEN ORDERED. PT IS ON ROOM AIR, DENIES ANY DISTRESS. COMPLAINS OF BACK LOWER PAIN, PAIN MED GIVEN PER ORDER. PT TAKEN OFF ISOLATION PER DR. HERRERA AFTER 2ND COVID TEST. CALL LIGHT AND TABLE IN REACH. BED AT LOWEST LEVEL WITH ALARM ON. WILL CONTINUE TO MONITOR.
[2019-10-13 15:05] VITALS: BP 110/47
--- NOTE | 2019-10-13 19:20 | NUR ---
1840 PT TRANSFER TO ROOM 464, PT BELONGING SEND DOWN WITH HIM.
[2019-10-13 20:55] VITALS: BP 103/40
--- NOTE | 2019-10-14 05:10 | NUR ---
PATIENT C/O ABD PAIN CALLED SIGNAL FITTER NEW ORDER OD DILUDID AND GI COCK TAIL. PAIN AND NAUSEA CONTROLLED THIS SHIFT. FALL PRECAUTION IN PLACE. PATIENT IN BED ASLEEP AT THIS TIME BREATHING REGULAR AND UNLABOURED.
[2019-10-14 05:58] LABS: HEMATOCRIT 33.8 % (37.0-47.0); HEMOGLOBIN 11.1 gm/dL (12.0-15.0); MCH 33.2 pg (26.0-34.0); MCHC 32.9 g/dL (28.0-37.0); MCV 100.7 fL (80.0-100.0); RBC 3.36 mil/uL (4.20-5.00); RDW 12.6 % (10.5-14.5); WBC 9.9 thou/uL (4.0-11.0)
[2019-10-14 06:32] LABS: CALCIUM 7.3 mg/dL (8.5-10.1); CREATININE 1.1 mg/dL (0.6-1.0); POTASSIUM 4.2 mmol/L (3.5-5.1)
[2019-10-14 07:56] VITALS: BP 95/40
[2019-10-14 15:30] VITALS: BP 104/45
--- NOTE | 2019-10-14 20:52 | NUR ---
Assumed pt care this am, would complain of abdominal pain and had bouts of lbm which resolved in the pm. Pt would get confused and would want more pain meds and does not want to be NPO, explained the rational for the NPO order of the MD. Abdomen is protruding and diffuse tenderness is noted. No nausea or vomiting has been noted. POC followed.
[2019-10-14 21:09] VITALS: BP 132/66
--- NOTE | 2019-10-15 07:33 | NUR ---
ASSUMED PT CARE AROUND 1930. AXOX4. VERY FRUSTRATED ABOUT PAIN MANAGEMENT. PT WANTS IV DILAUDID. BERTIN HERNANDEZ WILL NOT CHANGE. PT UPDATED. NO S/S ACUTE DISTRESS NOTED OR REPORTED AT THIS TIME. CARE TRANSFERRED TO AM RN AT THIS TIME.
[2019-10-15 08:07] LABS: ABSOLUTE NEUTROPHILS 4.4 thou/uL (1.4-8.2); BASOPHILS 0.6 % (0.0-2.0); EOSINOPHILS 7.1 % (0.0-3.0); HEMATOCRIT 32.8 % (37.0-47.0); HEMOGLOBIN 11.2 gm/dL (12.0-15.0); LYMPHOCYTES 21.6 % (24.0-44.0); MCH 33.7 pg (26.0-34.0); MCV 98.9 fL (80.0-100.0); MONOCYTES 8.6 % (1.0-8.0); PLATELET COUNT 327 thou/uL (150-400); POLYS 62.1 % (36.0-66.0); RBC 3.32 mil/uL (4.20-5.00); RDW 12.7 % (10.5-14.5)
[2019-10-15 08:09] VITALS: BP 156/68
[2019-10-15 08:17] LABS: ALBUMIN 2.8 g/dL (3.4-5.0); CALCIUM 7.7 mg/dL (8.5-10.1); CREATININE 0.8 mg/dL (0.6-1.0); MAGNESIUM 1.7 mg/dL (1.8-2.4); PHOSPHORUS 2.8 mg/dL (2.5-4.9); POTASSIUM 4.2 mmol/L (3.5-5.1); TOTAL BILIRUBIN 0.3 mg/dL (0.2-1.0); TOTAL PROTEIN 6.2 g/dL (6.4-8.2)
[2019-10-15 16:26] VITALS: BP 148/70
[2019-10-15 19:20] VITALS: BP 122/51
--- NOTE | 2019-10-15 21:38 | NUR ---
Assumed pt care in the am, pain is not managed as per the pt, informed MD who had gone in and spoken to the pt regrding the plan. Insists on IV pt meds which were dc and changed to oral. No N and V noted. POC followed, dient and medications are tolerated well. endorsed to the night nurse.
--- NOTE | 2019-10-16 04:51 | NUR ---
pain controlled this shift. fall precaution in place. patient in bed asleep at this time breathing regular and unlaboured
[2019-10-16] MEDS ORDERED: PERCOCET PO (08:32)
--- NOTE | 2019-10-16 12:45 | HC ---
[facility] [place] [address] CONSULTATION Name: CARO BRO Room #: 464-P [facility] IN M.R.#: [id number] Admission: 10/12/19 Attend Phys: Torrey Heart MD Discharge: Date of : 46 Report #: [id number] THIS REPORT FOR: cc: Orlando Jensen MD, Shyam MD Al-Mubaslat, Ahmad MD ~ CC: Torrey Jensen DATE OF SERVICE: 10/15/2019 ENDOCRINE CONSULTATION NOTE CONSULTING PHYSICIAN: Dr. Mayen. REASON FOR CONSULTATION: Type 2 diabetes mellitus, hypoglycemia. HISTORY OF PRESENT ILLNESS: This is a 69-year-old female patient whose medical background is rather extensive and is noted for issues of type 2 diabetes mellitus, CAD, Crohn's disease, hyperlipidemia as well as peripheral neuropathy. The patient presented on the day of admission with worsening abdominal pain that started a few days prior to her presentation. This was associated with intermittent fever, chills, nausea, vomiting, diarrhea and abdominal distention. The patient was subsequently admitted for further care and monitoring. She was ruled out for COVID-19. The patient notes that her diagnosis of type 2 diabetes mellitus was established earlier this year in 03/2019 and that she is maintained on a combination of metformin 500 mg b.i.d. as well as linagliptin 5 mg daily. However, she is pretty adamant that she has not been taking any insulin at home. The patient notes that she does not check her blood glucose values whatsoever and that she actually does not have a functioning blood glucose meter. The patient is not aware of any complications of chronic kidney disease or retinopathy, but she has had longstanding issues with peripheral neuropathy that ensued following her CABG in 2003. She has hyperlipidemia and is maintained on a combination of atorvastatin 40 mg at bedtime and ezetimibe 10 mg daily. She is known to have hypertension and is maintained on Benicar 40 mg daily, carvedilol 6.25 mg b.i.d. and notes that she tends to do well with her blood pressure control. The patient has severe peripheral neuropathy anteceding her diagnosis of diabetes mellitus by many years and she is maintained on a combination of oxycodone, Percocet, OxyContin as well as gabapentin 1200 mg t.i.d. with limited control. [address] [address] CONSULTATION Name: CARO BRO Room #: 464-P [facility] IN [facility]#: [id number] Admission: 10/12/19 Attend Phys: Torrey Heart MD Discharge: Date of : 46 Report #: [id number] REVIEW OF SYSTEMS: CONSTITUTIONAL: Fatigue, tiredness, fever and chills prior to presentation, but not major body weight changes. HEENT: Negative for sore throat, sinus pain, ear drainage. PULMONARY: No major issues with shortness of breath, cough or hemoptysis. CARDIAC: No chest pain, syncope or presyncope. GASTROINTESTINAL: Abdominal pain, abdominal distention, nausea, vomiting, diarrhea, background of Crohn's disease. NEUROLOGIC: Baseline issues with peripheral neuropathy, severe, but not seizure activity, severe frequent headaches or loss of consciousness. DERMATOLOGIC: Negative for skin rash, ulceration or other major abnormalities. Otherwise, her review of systems is noncontributory other than those mentioned in the HPI. PAST MEDICAL HISTORY: 1. Type 2 diabetes mellitus. 2. Hypertension. 3. Hyperlipidemia. 4. CAD, status post CO in 1996, status post CABG in 2003, status post multiple stent placements on several occasions including about a year ago. 5. Obesity. 6. Anxiety. 7. GERD. 8. Depression. 9. Severe bilateral foot neuropathy. 10. Crohn's disease. 11. Asthma. OUTPATIENT MEDICATIONS: Include aspirin 325 mg daily, amlodipine 5 mg daily, metformin 500 mg b.i.d., Tradjenta 5 mg daily, venlafaxine ER 150 mg daily, Percocet 5/325 mg tablet q. 6 hours p.r.n., OxyContin 10 mg b.i.d., Neurontin 1200 mg p.o. t.i.d., MiraLax 17 g daily, loperamide 2 mg t.i.d. p.r.n., Zofran 4 mg q. 4 hours p.r.n., Xanax 0.5 mg q. 6 hours p.r.n., atorvastatin 40 mg at bedtime, carvedilol 6.25 mg p.o. b.i.d., Protonix 40 mg daily, ezetimibe 10 mg daily, Benicar 40 mg daily, albuterol q. 4 hours p.r.n., trazodone 100 mg at bedtime. DRUG ALLERGIES: CODEINE, FENTANYL, IODINE, METHOTREXATE, METOCLOPRAMIDE, PROMETHAZINE, SULFA. FAMILY HISTORY: Noncontributory. SOCIAL HISTORY: The patient lives at an assisted living facility. She is a smoker. She denies use of alcohol. [facility] [address] [place] [address] CONSULTATION Name: CARO BRO Room #: 464-P [facility]#: [id number] Admission: 10/12/19 Attend Phys: Torrey Heart MD Discharge: Date of : 46 Report #: [id number] PHYSICAL EXAMINATION: GENERAL: female patient who is in some pain, holding her stomach intermittently throughout our interview and not in distress. VITAL SIGNS: Blood pressure is 156/68 mmHg, heart rate is 83 beats per minute, respirations 18 per minute, temperature is 36.4 degrees Celsius. CONSTITUTIONAL: The patient is sitting upright in bed, appears to be uncomfortable, in pain, holding her stomach. HEENT: Anicteric sclerae. Intact extraocular motions. NECK: Supple, without JVD, carotid bruits or lymphadenopathy. No thyromegaly. CHEST: Noted for moderate air entry bilaterally with scattered rales. No crackles. HEART: Regular rate and rhythm without murmurs or gallops. ABDOMEN: Soft, lax with voluntary guarding. Sluggish bowel sounds. EXTREMITIES: Lower extremity exam, trace edema. Diminished sensation to light touch. No skin breaks. NEUROLOGIC: Awake, alert and oriented to time, place and person. The remainder of her examination is nonfocal other than for peripheral sensory deficit. PSYCHIATRIC: Pleasant, interactive, oriented to time, place and person. Normal mood and affect. Normal thought content. LABORATORY DATA: Blood glucose values were reviewed at length throughout her stay. They have ranged between 76 and 153 mg/dL, but mostly between 80 and 120 mg/dL. Sodium 140, potassium 4.2, chloride 109, CO2 of 22, anion gap 9, BUN 13, creatinine 0.8, glucose 78, AST 18, lipase 45, total bilirubin 0.3, calcium 7.7, phosphorus 2.8, magnesium 1.7, alkaline phosphatase 80, ALT 31, total protein 6.2, albumin 2.8, EGFR 71. Lactic acid 0.9. Troponin negative. BNP 400. White blood count 7.0, hemoglobin 11.2, hematocrit 32.8, platelets 327. Hemoglobin A1c is 6.6%, was 7.8% in 04/2019. ASSESSMENT AND PLAN: 1. Type 2 diabetes mellitus. This is relatively a new diagnosis. The patient has done well on her current oral regimen as per her measured hemoglobin A1c of 6.6%, which is an improvement from her baseline of 7.8%. I counseled the patient at length about the pathogenesis of type 2 diabetes mellitus, its implications, and the importance of achieving and maintaining adequate glycemic control to avoid diabetic complications. Currently, she is maintained on a Humalog supplemental scale only, which is reasonable in view of her ongoing medical issues. I believe that she would be suited to resume her usual oral regimen once she stabilizes and is discharged back home. 2. Hypoglycemia. There has been a concern about the potential for hypoglycemia as the patient approached 76 mg/dL earlier today. However, this falls within normal limits and is occurring without active therapy other than the occasional use of supportive Humalog supplemental scale. That said, I do not believe this warrants further investigation. 3. Peripheral neuropathy, diabetic neuropathy. The patient has severe baseline issues with peripheral neuropathy and is maintained on multiple agents for this [address] [address] CONSULTATION Name: CARO BRO Room #: 464-P [facility] IN M.R.#: [id number] Admission: 10/12/19 Attend Phys: Torrey Heart MD Discharge: Date of : 46 Report #: [id number] issue including Dilaudid, Voltaren. She has been on OxyContin CR. Further management is as per the Primary Hospital Medicine team. 4. Hyperlipidemia. The patient is maintained on a combination of atorvastatin and Zetia and tolerates these well, she is to continue with the same. 5. Hypertension. The patient's level of blood pressure control has fluctuated during this hospital stay, likely due to alterations in her pain level, but has done overall well. She is to continue with the current regimen. I have reviewed the patient's clinical care notes, laboratory data, radiologic studies, and other pertinent clinical information for over 35 minutes in addition to my encounter time with her. I certainly appreciate this consultation by Dr. Mayen. <ELECTRONICALLY SIGNED> By: Delbert Hi MD 10/16/19 1245 [id number] 1425 Delbert Hi MD /nt
--- NOTE | 2019-10-16 14:41 | NUR ---
WE WERE AWAITING THERAPY EVALS TO DETERMINE IF PT WOULD BE SAFE TO RETURN TO HER [place] APARTMENT AT [facility] OR IF A SKILLED POST ACUTE CARE STAY AT [facility] WOULD BE BENEFICIAL. PT REFUSED PT AND OT THERAPY EVALS TODAY. CM TO FOLLOW INDICATED WITH DC PLANNING.
[2019-10-16 15:37] VITALS: BP 150/70
--- NOTE | 2019-10-16 19:30 | NUR ---
Pt. became very angry and upset as she was told that Dr. Howell was going to give her ivp pain medication. After reviewing orders there was no orders for ivp pain med. Informed pt. of this and she became outraged. I called and spoke to Belle GASTELUM and informed her of this. Belle GASTELUM then talked to Dr. Howell and she informed me that the Dr. did not want pt. to have any ivp pain meds. This was relayed to the pt. and she was still very mad and voiced that she was going to leave [facility]. This nurse spoke to the pt. about her other pain med options. She began to settle down a little. Pt. has had multiple re- quests for meds, etc. at the change of shift.
[2019-10-16 20:10] VITALS: BP 146/81
[2019-10-16 21:11] LABS: ABSOLUTE NEUTROPHILS 4.3 thou/uL (1.4-8.2); BASOPHILS 0.9 % (0.0-2.0); EOSINOPHILS 9.5 % (0.0-3.0); HEMATOCRIT 32.3 % (37.0-47.0); HEMOGLOBIN 11.1 gm/dL (12.0-15.0); LYMPHOCYTES 24.1 % (24.0-44.0); MCH 33.8 pg (26.0-34.0); MCHC 34.4 g/dL (28.0-37.0); MONOCYTES 8.9 % (1.0-8.0); PLATELET COUNT 326 thou/uL (150-400); POLYS 56.6 % (36.0-66.0); RBC 3.29 mil/uL (4.20-5.00); RDW 12.7 % (10.5-14.5); WBC 7.7 thou/uL (4.0-11.0)
--- NOTE | 2019-10-16 21:13 | NUR ---
ASSUMED PT CARE AT 0700. PT ALERT X ORIENT X 4. ON ROOM AIR. UP AD ENEIDA. USES BEDSIDE COMMODE. HAD DIARRHEA 3 TIMES TODAY. MIDLINE RT UPPER ARM. BLOOD DRAWN AND FLUSHED. ON FULL LIQUID DIET. THE WHOLE DAY PATIENT WAS UPSET OF PAIN AND WAS KEEP ON ASKING PAIN MEDS. NURSE LET THE HOSPITALIST KNOW ABOUT THAT. C/O NAUSEA ONE TIME IN THE MORNING PRN N/V MEDS GIVEN AND COMPLAINT RELIEVED. FALL PRECT IN PLACE CALL LIGHT IN REACH. WILL CALL FOR HELP. SHIFT REPORT GIVEN TO REGISTRATION COORDINATOR NURSE.
[2019-10-16 21:27] LABS: CALCIUM 7.5 mg/dL (8.5-10.1); CREATININE 0.8 mg/dL (0.6-1.0); MAGNESIUM 1.6 mg/dL (1.8-2.4); PHOSPHORUS 2.2 mg/dL (2.5-4.9); POTASSIUM 3.9 mmol/L (3.5-5.1)
--- NOTE | 2019-10-17 06:00 | NUR ---
Pt. did start to rest quietly towards mid morning without any complaints. She did refuse her am meds. Pt. did have about 4 loose stools during the shift.
[2019-10-17 08:21] VITALS: BP 144/73
--- NOTE | 2019-10-17 10:01 | NUR ---
Assess due to diet order. Pt w gastritis/duodenitis and diarrhea. Hx crohns,dm, cdiff, chronic pain, anxiety, CAD. Pt states tolerating the liquid diet and wants to try solids before she is discharged. Spoke with Dr Howell and received verbal order to advance diet. A1C 6.6%, no wt changes. Pt anxious stating does not want to be discharged today, but tomorrow. Low nutrition risk
[2019-10-17] MEDS ORDERED: PROTONIX40 M1 PO (12:02)
[2019-10-17] MEDS ORDERED: CARAFATE 11 GM/10 M1 PO (12:02)
[2019-10-17 15:03] VITALS: BP 145/72
--- NOTE | 2019-10-17 16:21 | NUR ---
CARE TEAM INDICATED THAT PT IS MEDIALLY STABLE TO [place] BACK TO HER [place] APARTMENT THIS DAY. PT INDICATED NUMEROUS TIMES THAT SHE CAN'T GET INTO HER APARTMENT. PT INDICATED HE SON WHO IS IN [place] WHO HAS HER SEARS WILL BE BACK TOMORROW. PT TO DC HOME TOMORROW. CM TO FOLLOW INDICATED WITH DC PLANNING.
--- NOTE | 2019-10-17 16:56 | NUR ---
Received awake on bed. Due medications given as prescribed, able to swallow meds w/o difficulty. On MS, not on telemetry; no complaints of chest pain, crushing, heaviness. On room air. On full liquids, tolerating well; no nausea, no vomiting and no abdominal pain. On blood sugar monitoring, taken and recorded accordingly; with sliding scale insulin ordered. Still a/w stool sample- pt has not had a bowel movement since this morning, pt instructed to inform staff once with bowel movement. Assisted in ADLs. With D51/2 NS at 80cc/hr, infusing well at R upper(midline)- dressing C/D/I. Able to go to the toilet, standby assist. Pt seen and examined by undertaker helper, diet advanced. Pt still asking additional pain medication aside for PO prescribed- Dr Howell informed and said pt to only have PO pain meds for now- pt informed. IVF discontinued as ordered; midline maintained for IV meds. For possible discharge today, a/w orders and CM's input. To continue monitoring patient.
[2019-10-17 20:44] VITALS: BP 114/68
--- NOTE | 2019-10-18 05:59 | NUR ---
ASSUMED CARE OF PT AT 1900HRS. PT AOX4 AND LETS NEEDS BE KNOWN. PT REPORTED PAIN AND NAUSEA, AND WAS MEDICATED AROUND THE CLOCK WITH MINIMAL RELIEF. SDET WAS NOTIFIED AND NO NEW ORDERS WERE RECEIVED. PT HAD NO BM THIS SHIFT, STOOL SAMPLE FOR C-DIFF PENDING. PT DID NOT SLEEP THIS SHIFT. VSS AND NO S/S OF ACUTE DISTRESS. WILL CONTINUE TO MONITOR FOR CHANGES.
[2019-10-18 08:27] VITALS: BP 153/86
--- NOTE | 2019-10-18 10:56 | NUR ---
Received awake on bed. Due medications given as prescribed, able to swallow meds w/o difficulty. On room air. Vital signs stable. On MS, not on telemetry, no complaints of chest pain, crushing sensation and heaviness. On Carb controlled diet- tolerating well. Still a/w stool sample to rule out Cdiff- still no bowel movement since yesterday. Assisted in ADLs. On blood sugar monitoring, taken and recorded accordingly; with sliding scale insulin ordered- given as prescribed. With R UA midline in place- intact and flushing well. Continent of bowel and bladder, able to go to the toilet with standby assist. Pt still complaining of pain, PRN pain meds given as prescribed; pt complaining that her pain is getting 'worse' today- Dr Howell informed. To continue monitoring patient. A/W CM advise re: discharge.
[2019-10-18 12:09] VITALS: BP 153/86
--- NOTE | 2019-10-18 14:07 | PATH ---
[facility] [place] [address] PATHOLOGY RPT PROCEDURE Name: SELENE BRO Room #: 464-P [facility] IN M.R.#: [id number] Admission: 10/12/19 Date of : 46 Discharge: Report #: [id number] Path Case #: [id number] [facility] Accession Number: [id number] . 01 Material submitted: . PART A: duodenum - BX OF DUODENAL ULCER 2ND-3RD PORTION PART B: stomach - BX OF GASTRIC MUCOSA . 01 Clinical history: . A. Questionable history of Crohn's disease B. Rule out H. pylori . 02 Diagnosis: A. Small bowel mucosa, duodenal ulcer second to third portion, endoscopic biopsy: - Focal ulceration present. - Moderate acute and chronic duodenitis associated with focal fundic-type metaplasia, favor peptic duodenitis. - Negative for dysplasia or malignancy. - Negative for villous blunting or increase in intra-epithelial lymphocytes. . B. Gastric mucosa, rule out H. pylori, endoscopic biopsy: - Mild chronic gastritis with features of reactive gastropathy. - Negative for intestinal metaplasia or atrophy. - Negative for Helicobacter pylori (properly controlled immunohistochemical stain performed). [facility] 10/17/2019 1445 Local . 02 Comment: Findings identified within the duodenal mucosa are suggestive of peptic duodenitis. History of Crohn's disease is noted. It is likely those features may overlap the inflammation identified. Please correlate clinically. (IUV/db; 10/17/2019) . 02 Electronically signed: . Kaelyn Houston MD, Pathologist NPI- [id number] . 01 Gross description: . A. The specimen is received in formalin, labeled "Selene Bro BX of duodenal ulcer second-third portion" and consists of multiple fragments of villalobos tissue measuring 1.3 x 0.6 x 0.3 cm in aggregate which are entirely submitted in A1. . B. The specimen is received in formalin, labeled "Selene Bro BX of [address] [address] PATHOLOGY RPT PROCEDURE Name: SELENE BRO Room #: 464-P [facility] IN M.R.#: [id number] Admission: 10/12/19 Date of : 46 Discharge: Report #: [id number] Path Case #: [id number] gastric mucosa" and consists of multiple fragments of villalobos tissue measuring 1.0 x 0.5 x 0.3 cm in aggregate which are entirely submitted in B1. (SDY; 10/16/2019) SYU/SYU 10/16/2019 1124 Local . 02 Pathologist provided ICD-10: K29.80, K29.50 . 02 CPT . 403664, [id number], C94368 Specimen Comment: A courtesy copy of this report has been sent to [phone], [facility]- Specimen Comment: [id number] Specimen Comment: Report sent to / Specimen Comment: A duplicate report has been generated due to demographic updates. Performed at: [address] [facility], [place], [place] [id number] MD Mina Nunez MD Phone: [phone] Performed at: [address] [facility] [id number] MD Kaelyn Houston MD Phone: [phone]
[2019-10-18] MEDS ORDERED: NORVASC5 MG PO (15:35)
[2019-10-18] MEDS ORDERED: COREG6.25 MG PO (15:35)
[2019-10-18] MEDS ORDERED: BENICAR40 MG PO (15:35)
[2019-10-18] MEDS ORDERED: VENTOLIN HFA 1818 GM INH (15:35)
[2019-10-18] MEDS ORDERED: LIPITOR40 MG PO (15:35)
[2019-10-18] MEDS ORDERED: NYAMYC15 GM TOP (15:35)
[2019-10-18] MEDS ORDERED: ZETIA10 MG PO (15:35)
[2019-10-18] MEDS ORDERED: TRAZODONE HCL50 MG PO (15:35)
[2019-10-18] MEDS ORDERED: TRADJENTA5 MG PO (15:35)
[2019-10-18] MEDS ORDERED: GABAPENTIN 100100 MG PO (15:35)
--- NOTE | 2019-10-18 16:45 | NUR ---
CM FOLLOWED UP WITH PT THIS AM AND ASKED WHEN SHE HAD TRANSPORT FOR DC ARRANGED TODAY. INITIALLY HER SON COULD OPEN HER DOOR AT 2:30 THEN PT'S ADVOCATE GRACY HILTON CALLED AND INDICATED THAT PT ISN'T SAFE TO DC BACK TO HER [place] APARTMENT. CM INDICATED THAT PT HAD REFUSED THERAPY HERE AT HOSPITAL AND ISN'T AGREEABLE TO POST ACUTE CARE STAY AT [facility] UPON DC. CM INDICATED TO ADVOCATE AND PT THAT SHE CAN SPEAK WIHT STAFF AT [facility] REGARDING POSSIBLE TRANSITION TO [place] IS NEEDED PT DOESN'T WANT TO. CM INDICATED THAT CM COULD ASSIST IN VOUCHERING PT'S NON NARCOTIC MEDS AND OFFER TRANSPORT THROUGH [facility]. [facility] ARRANGED FOR [id number]. PT DOESN'T HAVE PART B SO CAN'T HAVE HH. CM TO HAVE [facility] FOLLOW UP WITH PT UPON DC.
[2019-10-18 16:47] VITALS: BP 157/82
--- NOTE | 2019-10-19 09:01 | P ---
[facility] [place] [address] PROCEDURE REPORT Name: CARO BRO Room #: 464-P [facility] IN M.R.#: [id number] Admission: 10/12/19 Attend Phys: Torrey Heart MD Discharge: 10/18/19 Date of : 46 Report #: [id number] THIS REPORT FOR: cc: Orlando Jensen MD, Shyam MD Thesing, John A. MD ~ CC: Torrey Jensen MD BRIEF HISTORY: The patient is a 69-year-old woman who was admitted with severe abdominal pain. She had a CT scan of the abdomen, which was noncontrast and revealed circumferential thickening of the antrum and the duodenum. She has a questionable history of Crohn's disease. PREOPERATIVE DIAGNOSES: Abdominal pain and abnormal CT of the stomach and duodenum. POSTOPERATIVE DIAGNOSES: 1. Extensive ulceration of duodenal bulb and postbulbar duodenum. 2. Moderate diffuse gastritis without ulceration. MEDICATIONS: Deep sedation with propofol per anesthesia. SPECIMENS: 1. Biopsies of duodenal ulcers. 2. Biopsies of gastritis. ESTIMATED BLOOD LOSS: 3 mL. PROCEDURE: EGD with biopsy. FINDINGS: Prior to propofol sedation, procedure of upper endoscopy discussed with the patient as well as potential risks and its complications. She indicates she understands and desires to proceed. DESCRIPTION OF PROCEDURE: With the patient in left lateral decubitus position, digital examination was completed, which revealed no abnormalities. Subsequently, the Olympus video endoscope was inserted in the cervical esophagus under direct vision without difficulty. Examination of this organ through its entire length revealed normal esophageal mucosa down the squamocolumnar junction. Squamocolumnar junction was inspected and noted to be unremarkable. No ulcers or erosions were seen. Scope was advanced into the stomach, was examined on end view as well as retroflexed views. Examination of the proximal stomach on end view as well as retroflexed views revealed what may be a diffuse gastritis. The mucosa was intact, but it had a distinctly nodular appearance of the entire body, fundus, and the stomach. No ulcers were seen. There is no [facility] [address] [place] [address] PROCEDURE REPORT Name: CARO BRO Room #: 464-P [facility] IN [facility].#: [id number] Admission: 10/12/19 Attend Phys: Torrey Heart MD Discharge: 10/18/19 Date of : 46 Report #: [id number] evidence of bleeding lesions. Examination of distal stomach revealed less nodularity or erythema. There were no ulcers. The pylorus was unremarkable. Examination of the duodenal bulb revealed multiple punctate ulcers covering much of the duodenal bulb. As we advanced the scope into the second and third portion of duodenum, the mucosa was quite edematous. The edematous mucosa was narrowing the lumen of the duodenum, but the scope did pass easily into the distal third portion. As we withdrew the scope back through the duodenum, multiple ulcers were seen and the largest ulcer was at least 1.5 cm. There was no evidence of bleeding. There were also multiple punctate ulcers as well. Multiple biopsies were obtained of these ulcers, especially in view of the fact she gives a history of inflammatory bowel disease. At that point, the scope was slowly withdrawn and careful circumferential views confirmed the above findings. The patient tolerated the procedure well. DISPOSITION: The patient with abnormal CT and abdominal pain. She has multiple ulcers as noted above. We will follow up on biopsies, especially in view of her history of inflammatory bowel disease. At some point, she will need a colonoscopy as well. In addition, due to the atypical presentation of the ulcers into the second portion of duodenum, we will obtain a fasting gastrin to evaluate for gastrinoma. <ELECTRONICALLY SIGNED> By: Agustin Jackson MD 10/19/19 0901 1403 1831 Agustin Jackson MD /nt
== END 2019-10-18 19:52 | disposition home or self-care (01) | DRG 871 ==
LOC: ER 19:37 → EROBS 10-12 00:55 → 3W 10-12 00:55 → 4S 10-13 18:32 → 4W 10-13 18:58
PROVIDERS: Emergency Medicine; Internal Medicine; Nurse Practitioner; ADMIT Hospitalist; ATTEND Hospitalist
PROC: 05HB33Z Insertion of Infusion Device into Right Basilic Vein, Percutaneous Approach (ICD-10-PCS; principal; 2019-10-12)
PROC: 0DB68ZX Excision of Stomach, Via Natural or Artificial Opening Endoscopic, Diagnostic (ICD-10-PCS; 2019-10-13)
PROC: 0DB98ZX Excision of Duodenum, Via Natural or Artificial Opening Endoscopic, Diagnostic (ICD-10-PCS; 2019-10-13)
DX: A41.9 Sepsis, unspecified organism (principal); N17.0 Acute kidney failure with tubular necrosis; K50.90 Crohn's disease, unspecified, without complications; E66.01 Morbid (severe) obesity due to excess calories; K29.60 Other gastritis without bleeding; Z20.828 Contact with and (suspected) exposure to other viral communicable diseases; K26.9 Duodenal ulcer, unspecified as acute or chronic, without hemorrhage or perforation; K21.9 Gastro-esophageal reflux disease without esophagitis; F41.9 Anxiety disorder, unspecified; F32.9 Major depressive disorder, single episode, unspecified; I25.10 Atherosclerotic heart disease of native coronary artery without angina pectoris; I10 Essential (primary) hypertension; E11.42 Type 2 diabetes mellitus with diabetic polyneuropathy; E78.5 Hyperlipidemia, unspecified; E11.649 Type 2 diabetes mellitus with hypoglycemia without coma; G89.29 Other chronic pain; J44.9 Chronic obstructive pulmonary disease, unspecified; Z88.2 Allergy status to sulfonamides; Z88.8 Allergy status to other drugs, medicaments and biological substances; I25.2 Old myocardial infarction; Z90.722 Acquired absence of ovaries, bilateral; Z90.710 Acquired absence of both cervix and uterus; Z85.42 Personal history of malignant neoplasm of other parts of uterus; Z95.1 Presence of aortocoronary bypass graft; Z88.6 Allergy status to analgesic agent; Z91.041 Radiographic dye allergy status; Z87.891 Personal history of nicotine dependence; Z68.36 Body mass index [BMI] 36.0-36.9, adult; Z95.5 Presence of coronary angioplasty implant and graft; Z79.891 Long term (current) use of opiate analgesic; Z90.49 Acquired absence of other specified parts of digestive tract; Z80.0 Family history of malignant neoplasm of digestive organs
CPT/HCPCS: 10047; 10779; 27000; 62110; 62900; 70005